=== PATIENT | male | born 1995 | race Caucasian/White ===

== ENCOUNTER 2016-12-25 22:39 | Emergency (ER) | payer OTHER ==
[~2016-12-25] VITALS: Ht 182.9 cm; Wt 76.8 kg
[2016-12-25 22:44] VITALS: TEMP 36.4; Ht 182.9 cm; Wt 76.8 kg
[2016-12-25] MEDS ORDERED: FAMOTIDINE 20MG/102 ML D5W IV STA (23:12)
[2016-12-25] MEDS ORDERED: DEXAMETHASONE SOD INJ 10 MG/ML VIAL IV ONE (23:15)
[2016-12-25] MEDS ORDERED: DIPH25CA65 PO (23:36)
[2016-12-26] MEDS ORDERED: PRED50TA PO (00:17)
[2016-12-26 00:28] VITALS: BP 92/71; PULSE 56; O2SAT 98
--- NOTE | 2016-12-26 02:48 | EMERGENCY ROOM VISIT NOTE ---
History First contact with patient: 23:11 Chief Complaint: ALLERGIC REACTION Stated Complaint: ALLERGIC REACTION Nursing Triage Summary: Pt reports that he ate pizza tonight and developed an allergic reaction where be became very itchy and turned red. Pt took 50mg oral benadryl and reports he did not see a significant improvement therefore he came to ED. Pt has diffuse redness with some hives over face, arms and torso. Allergy to all nuts. History of Present Illness The patient is a 21 year old male who presents to the Emergency Room with complaints of allergic reaction after eating pizza. Patient states he is allergic to nuts and seeds. He is unsure if there is any of this on the pizza. Patient took 50mg of Benadryl prior to arrival. Patient complains of rash and itching. Patient denies throat tightness, chest pain, dyspnea, facial tone , tongue swelling, abdominal pain, vomiting, diarrhea. No history of anaphylaxis in the past. He does have an EpiPen. Review of Systems See HPI for pertinent positives & negatives. A total of 10 systems reviewed and were otherwise negative. Past Medical/Surgical History None Social History Smoking Status: Never Smoker Smokeless Tobacco Use: No Alcohol Use: occasionally Drug Use: none Occupation Status: [employer] Current/Historical Medications Scheduled Prednisone (Prednisone), 50 MG PO DAILY Scheduled PRN Diphenhydramine Hcl (Benadryl Allergy), 1-2 CAP PO UD PRN for Anxiety Allergies Uncoded Allergies: NUTS AND SEEDS (Allergy, Unknown, ., 01/02/16) Physical Exam Vital Signs Date Time Temp Pulse Resp B/P Pulse Ox O2 Delivery O2 Flow Rate FiO2 12/26/16 00:28 56 20 92/71 98 12/25/16 22:50 98 Room Air 12/25/16 22:44 36.4 96 20 134/79 97 Room Air Pain Rating (0-10): 0 Physical Exam VITALS: Vitals are noted on the nurse's note and reviewed by myself. Vital signs stable. GENERAL: Pleasant male, in no acute distress, nondiaphoretic, well-developed well-nourished. SKIN: Diffuse erythematous blanchable dermatitis most consistent with hives, allergic reaction The rest of the skin was without rashes, erythema, edema, or bruising. There is no tenting of the skin. Capillary reflex less than 2 seconds. HEAD: Normocephalic atraumatic. No facial swelling EARS: External auditory canals clear, tympanic membranes pearly jasso without erythema or effusion bilaterally. EYES: Pupils equal round and reactive to light and accommodation. Conjunctivae without injection, sclerae without icterus. Extraocular movements intact. NOSE: Patent, turbinates without inflammation or discharge. No sinus tenderness. MOUTH: Mucous membranes moist. No lip swelling Pharynx without erythema or exudate. Uvula midline. Airway patent. Tongue does not deviate. NECK: Supple without nuchal rigidity. No lymphadenopathy. No thyromegaly. Cervical spine is nontender. No JVD. HEART: Regular rate and rhythm without murmurs gallops or rubs. LUNGS: Clear to auscultation bilaterally without wheezes, rales or rhonchi. No dullness to percussion. No retractions or accessory muscle use. ABDOMEN: Positive bowel sounds x 4. Normal tympanic percussion. Soft, nontender, without masses or organomegaly. Bautista sign negative. No guarding or rebound tenderness. MUSCULOSKELETAL: No muscle atrophy, erythema, or edema noted. NEURO: Patient was alert and oriented to person place and time. Normal sensation to light and sharp touch. No focal neurological deficits. Medical Decision & Procedures Medications Administered Medications (Trade) Dose Ordered Sig/Cintia Route Start Time Stop Time Status Last Admin Dose Admin Famotidine (Pepcid 20mg/100 ml) 20 mg ONE STAT IV 12/25/16 23:12 12/25/16 23:14 DC 12/25/16 23:33 20 MG Dexamethasone Sodium Phosphate (Decadron Inj) 10 mg NOW ONCE IV 12/25/16 23:15 12/25/16 23:16 DC 12/25/16 23:33 10 MG ED Course Prior records/ancillary studies reviewed. Triage Nursing notes reviewed. The patient's history was concerning for possible allergic reaction. Differential diagnosis: Etiologies such as allergic reaction, anaphylaxis, urticaria, Cid-Kofi syndrome, toxic epidermal necrolysis, erythema multiforme, cellulitis, as well as others were entertained. Physical examination: As above. ER treatment provided: Continuous cardiac monitoring Pepcid 20 mg IV Decadron 10 mg IV On reassessment the patient felt better. Diagnostic interpretation by me: Deferred It appears the patient had an allergic reaction. The above treatment did well to reverse the symptoms. After prolonged monitoring and frequent reassessments the patient did very well and symptoms resolved. The patient was counseled on the spectrum of this disease process and told to avoid potential triggers. I gave my usual and customary discussion regarding this issue. By the evaluation outlined above emergent etiologies such as recurring anaphylaxis, anaphylatic shock, airway compromise, Cid-Kofi syndrome, toxic epidermal necrolysis, erythema multiforme, infectious etiologies, as well as others were deemed relatively unlikely. The pt informed about the findings as listed above. All questions were answered and pleased with the treatment. Return instructions were outlined and the patient was discharged in stable condition. Outpatient prescription management: prednisone Referral: The patient was referred back to primary care physician for follow-up in 2-3 days for a recheck of the current condition. Medical Decision As above Impression Primary Impression: Allergic reaction Departure Information Dispostion Home / Self-Care Condition GOOD Prescriptions Prednisone (Prednisone) 50 Mg Tab 50 MG PO DAILY for 4 Days, #4 TAB Prov: Tami Kirby ., DIA 12/26/16 Referrals No Doctor, Assigned (PCP) Forms HOME CARE DOCUMENTATION FORM, IMPORTANT VISIT INFORMATION Patient Instructions My [facility], ED Allergic React Food Additional Instructions DO NOT drive, drink alcohol, operate machinery, or perform dangerous activities today. You were given medications in the ER that can affect your ability to safely function or operate a vehicle. Epi-Pen: Use one injection as instructed for severe allergic reactions associated with shortness of breath, difficulty breathing, or throat or tongue swelling. If you use this injection call 911 or proceed immediately to the nearest Emergency Room. Prednisone 50mg: Once daily until the prescription is finished. It is best to take this earlier in the day as some patients note occasional difficulty falling asleep when taken in the late evening. Diphenhydramine(Benadryl) 25mg: use 25 to 50 mg every six hours for swelling, itching, or hives. This medication is sedating and will cause drowsiness. Avoid alcohol, operating machinery or dangerous equipment, working on ladders or roofs, DRIVING, or situations where being under the influence may be dangerous. Zantac 75: Take two pills twice a day along with Benadryl as needed for swelling , itching, or hives. Most people know this for its affect on the stomach, but it also acts similar to, but less potent than Benadryl for allergic reactions. Both the Benadryl and the Zantac are available [id number]. Continue current medications. Return to the emergency department for worsening of your rash, swelling of your face, lips, tongue, or throat, difficulty breathing, vomiting, or as needed. Follow-up with your primary care physician in 2 to 3 days for a recheck of your current condition. Problem Qualifiers Primary Impression: Allergic reaction Encounter type: initial encounter Qualified Codes: T78.40XA - Allergy, unspecified, initial encounter
== END 2016-12-26 00:28 | disposition home or self-care (01) ==
LOC: C.EDB 22:40 → C.EDC 12-26 00:28
DX: T78.40XA Allergy, unspecified, initial encounter (principal); X58.XXXA Exposure to other specified factors, initial encounter; Z79.899 Other long term (current) drug therapy